=== PATIENT | female | born 1970 | race Hispanic/Latino ===

== ENCOUNTER 2016-09-02 15:45 | Emergency (ER) | payer SELFPAY ==
[2016-09-02 16:09] VITALS: BMI 40.4
[2016-09-02 16:13] VITALS: BP 118/72; PULSE 76; TEMP 98.9; O2SAT 98
[2016-09-02] MEDS ORDERED: Naproxen 550 mg Tab PO STA (16:32)
--- NOTE | 2016-09-02 16:37 | ED PDOC ---
Arrival/HPI - General Chief Complaint: ENT Problem Time Seen by Provider: 09/02/16 16:32 Historian: Patient - History of Present Illness Narrative History of Present Illness (Text): 09/02/16 16:33 Patient presents to the emergency room complaining of 2 day history of left ear pain, states that her ear looks swollen and she has decreased hearing. Denies any fever, chills, headache, URI symptoms, rash, sore throat. Patient has no other complaints otherwise. Past Medical History - Provider Review Nursing Documentation Reviewed: Yes - Infectious Disease Hx of Infectious Diseases: None - Tetanus Immunization Tetanus Immunization: Up to Date - Cardiac Hx Cardiac Arrhythmia: Yes (V TACH) - Pulmonary Hx Respiratory Disorders: No - Musculoskeletal/Rheumatological Other/Comment: SCIATICA - Psychiatric Hx Psychophysiologic Disorder: No Hx Substance Use: No - Surgical History Hx Tonsillectomy: Yes Other/Comment: R LUMPECTOMY - Suicidal Assessment Feels Threatened In Home Enviroment: No Family/Social History - Physician Review Nursing Documentation Reviewed: Yes Family/Social History: No Known Family HX Smoking Status: Heavy Smoker > 10 Cigarettes Daily Hx Alcohol Use: No Hx Substance Use: No Allergies/Home Meds Allergies/Adverse Reactions: Allergies No Known Allergies Allergy (Verified 09/22/14 15:40) Review of Systems - Review of Systems Constitutional: Normal. absent: Fatigue, Fevers Eyes: Normal. absent: Vision Changes, Photophobia ENT: Normal, Hearing Changes. absent: Tinnitus, TMJ Pain, Voice Changes Respiratory: Normal. absent: SOB, Cough Skin: Normal. absent: Rash, Pruritis, Skin Lesions Physical Exam - Physical Exam Narrative Physical Exam (Text): 09/02/16 16:34 GENERAL APPEARANCE: Patient is awake, alert, oriented x 3, in mild painful distress. SKIN: Warm, dry; (-) cyanosis, (-) rash. (-) Decubitus Ulcer EYES: (-) conjunctival pallor, (-) scleral icterus, (-) conjunctival hemorrhage. ENMT: Mucous membranes moist. R ear: canal wnl, TM normal. L ear: (+) pain with pulling of the tragus, (+) moderate edema of the canal, unable to visualize the TM. Airway patent: (-) stridor. Pharynx: (-) erythema, (-) exudate. NECK: (-) tenderness, (-) stiffness, (-) meningismus, (-) lymphadenopathy. EXTREMITIES: (-) deformity; (-) cellulitis, (-) lymphangitis; (-) subungual hemorrhage; (-) edema. NEURO AND PSYCH: Mental status as above; (-) focal findings. Vital Signs Temp Pulse Resp BP Pulse Ox 09/02/16 15:45 98.9 F 76 18 118/72 98 Medical Decision Making ED Course and Treatment: 09/02/16 16:36 46 yo F presents with L ear otitis externa. Will treat as such. Mirocel placed inside the L ear canal. Given naprosyn for pain. Patient states she fully agrees with and understands discharge instructions. States that she agrees with the plan and disposition. Verbalized and repeated discharge instructions and plan. I have given the patient opportunity to ask any additional questions. Follow up with ENT referral provided in 1-2 days without fail. Advised to take medication as prescribed. Return to the emergency room at any time for any new or worsening symptoms. 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 Disposition/Present on Arrival - Present on Arrival Any Indicators Present on Arrival: No History of DVT/PE: No History of Uncontrolled Diabetes: No Urinary Catheter: No History of Decub. Ulcer: No History Surgical Site Infection Following: None - Disposition Have Diagnosis and Disposition been Completed?: Yes Diagnosis: Otitis externa Disposition: HOME/ ROUTINE Disposition Time: 16:37 Patient Plan: Discharge Condition: GOOD Discharge Instructions (ExitCare): Otitis Externa (ED) Print Language: [place] Additional Instructions: Thank you for letting us take care of you today. You were treated for otitis externa. The emergency medical care you received today was directed at your acute symptoms. If you were prescribed any medication, please fill it and take as directed. It may take several days for your symptoms to resolve. Return to the Emergency Department if your symptoms worsen, do not improve, or if you have any other problems. Please contact ENT doctor in 2 days for re-evaluation and follow up. Bring any paperwork you were given at discharge with you along with any medications you are taking to your follow up visit. Our treatment cannot replace ongoing medical care by a primary care provider (PCP) outside of the emergency department. Thank you for allowing the [facility] team to be part of your care today. Prescriptions: Neomycin/Polymyxin/Hydrocort [Cortisporin Otic Soln] 4 drop QID #1 bottle Naproxen 500 mg PO BID #30 tab Referrals: Jorge Braun DO [Staff Provider] - Follow up with primary
[2016-09-02 16:45] VITALS: RESP 16
== END 2016-09-02 16:45 | disposition home or self-care (01) ==
LOC: ED 15:45
DX: H60.92 Unspecified otitis externa, left ear (principal); F17.210 Nicotine dependence, cigarettes, uncomplicated